=== PATIENT | female | born 1930 | race Caucasian/White ===

== ENCOUNTER 2017-01-05 15:05 | Emergency (ER) | payer OTHER ==
[~2017-01-05] VITALS: Ht 160 cm; Wt 63.5 kg
[~2017-01-05 15:05] MED LIST: AMBIEN; AMBIEN5 MG PO; ANTIVERT25 MG PO; ASPIRIN; ATORVASTATIN 80 MG T; ATORVASTATIN CA80 MG PO; Ambien PO; Antivert PO; CEFTIN250 MG PO; CLINDAMYCIN HC300 MG PO; CLONAZEPAM0.5 MG; CRANBERRY450 M1 PO; CYANOCOBALAM1000 MCG PO; Colace PO; DEPAKOTE; DEPAKOTE500 MG PO; DIVALPROEX SOD500 MG; ECOTRIN325 MG PO; Ecotrin PO; FLAGYL500 MG PO; GENTAMICIN SULF30 G1 TP; GLUCOPHAGE500 MG; GLUCOPHAGE500 MG PO; Glucophage PO; KEFLEX500 MG PO; KETOCONAZOLE60 GM TP; KLONOPIN; KLONOPIN0.5 M1; KLONOPIN0.5 M1 PO; KlonoPIN PO; LANSOPRAZOLE15 MG PO; LEVAQUIN750 MG PO; LEVOFLOXACIN750 MG PO; LISINOPRIL; LISINOPRIL 5 MG TABL; MECLIZINE HCL25 MG; METAMUCIL POWD798 GM PO; METFORMIN HCL500 MG; METRONIDAZOLE500 MG PO; MOTRIN600 MG PO; NYSTATIN-TRIAMC15 G1 TP; NYSTATIN15 GM TP; PERCOCET 5/31 TABLET PO; POLYETHYLENE GL17 GM PO; PREVACID15 MG; PRINIVIL5 MG PO; Pravachol PO; Prevacid PO; SALINE NASAL SP45 ML BOTH NARES; SEROQUEL12.5 MG; SEROQUEL12.5 MG PO; SEROquel PO; TYLENOL REGULA325 MG PO; ULTRAM50 MG PO; Ultram PO; VITAMIN D; VITAMIN D1000 INTUN PO; VITAMIN D31000 UNI2 PO; VOLTAREN 1% GE100 GM TD; VOLTAREN 1% GE100 GM TP; ZESTRIL5 MG; ZOFRAN ODT4 MG PO; ZOFRAN4 MG PO; ZOFRAN8 MG; ZOLPIDEM TARTRA10 MG; Zestril,Prinivil PO; Zofran PO
[2017-01-05 15:52] LABS: HEMATOCRIT 35.5 % (36.0-46.0); MCHC 33.2 G/DL (30.0-36.0); MCV 93.2 FL (83-99); MEAN PLAT.VOLUME 10.1 uM^3 (9.5-12.4); PLATELET COUNT 273 K/uL (156-360); RBC DIS.WIDTH-CV 14.4 % (11.8-14.6); RED BLOOD COUNT 3.81 M/uL (3.80-5.20); WHITE BLOOD COUNT 6.4 K/uL (4.1-10.2)
[2017-01-05 16:02] LABS: INTER. NORMALIZED RATIO 1.1; PROTHROMBIN TIME 10.8 (9.2-11.2); PTT 25.1 (25-32)
[2017-01-05 16:05] LABS: CHLORIDE 114 mEq/L (99-109); POTASSIUM 3.9 mEq/L (3.7-5.4); SODIUM 141 mEq/L (136-147)
[2017-01-05 16:07] LABS: GLUCOSE 94 mg/dL (70-99)
[2017-01-05 16:09] LABS: ANION GAP 10 MEQ/L (2-14)
[2017-01-05 16:11] LABS: GFR ESTIMATE (CALCULATED) > 59 mL/min/
[2017-01-05 16:12] LABS: UREA NITROGEN (BUN) 19 mg/dL (9-23)
[2017-01-05 16:15] LABS: TROP-I INTERPRETATION NEGATIVE; TROPONIN-I < 0.01 ng/mL (0.0-0.30)
[2017-01-05 18:20] LABS: ADD MIUA? YES; BILIRUBIN NEGATIVE; BLOOD SMALL; COLOR YELLOW ((YELLOW)); GLUCOSE (STRIP) NEGATIVE; KETONES 5; LEUKOCYTES SMALL; NITRITE POSITIVE; PROTEIN (STRIP) NEGATIVE; SPECIFIC GRAVITY 1.016 (1.000-1.030); UROBILINOGEN 0.2 MG/DL (0.2-1.0)
[2017-01-05 18:29] LABS: BACTERIA RARE /HPF; EPITHELIAL CELLS 2+ /HPF; HYALINE CASTS 0-5 /LPF; MUCUS TRACE /LPF; RED BLOOD CELLS 0-5 /HPF (0-5); UCUL ADDED? NO
[2017-01-05] MEDS ORDERED: CIPRO500 MG PO (18:36)
[2017-01-05 19:01] VITALS: BP 133/70
== END 2017-01-05 19:22 | disposition home or self-care (01) ==
LOC: EME → EDBD 15:05 → EME 15:05
PROVIDERS: Emergency Medicine
DX: N39.0 Urinary tract infection, site not specified (principal); E86.0 Dehydration; R53.1 Weakness; R42 Dizziness and giddiness; F31.11 Bipolar disorder, current episode manic without psychotic features, mild; I10 Essential (primary) hypertension; E78.5 Hyperlipidemia, unspecified; E11.9 Type 2 diabetes mellitus without complications; Z79.84 Long term (current) use of oral hypoglycemic drugs; Z79.82 Long term (current) use of aspirin; Z86.73 Personal history of transient ischemic attack (TIA), and cerebral infarction without residual deficits; Z88.0 Allergy status to penicillin; Z90.710 Acquired absence of both cervix and uterus; F17.200 Nicotine dependence, unspecified, uncomplicated
CPT/HCPCS: 70450; 71020; 80048; 81003; 84484; 85027; 85610; 85730; 90839; 93005; 99281; 99285; J7030

== ENCOUNTER 2017-01-09 01:50 | Emergency (ER) | payer OTHER ==
[~2017-01-09] VITALS: Ht 160 cm; Wt 60.2 kg
[~2017-01-09 01:50] MED LIST changes: +CIPRO500 MG PO
[2017-01-09 02:18] LABS: HEMATOCRIT 36.7 % (36.0-46.0); MCH 30.8 PG (29.0-34.0); MCHC 33.2 G/DL (30.0-36.0); MCV 92.7 FL (83-99); MEAN PLAT.VOLUME 9.4 uM^3 (9.5-12.4); PLATELET COUNT 313 K/uL (156-360); RBC DIS.WIDTH-CV 14.5 % (11.8-14.6); RBC DIS.WIDTH-SD 49.8 % (39-53); RED BLOOD COUNT 3.96 M/uL (3.80-5.20); WHITE BLOOD COUNT 7.3 K/uL (4.1-10.2)
[2017-01-09 02:30] LABS: CHLORIDE 112 mEq/L (99-109); POTASSIUM 3.5 mEq/L (3.7-5.4); SODIUM 141 mEq/L (136-147)
[2017-01-09 02:33] LABS: GLUCOSE 86 mg/dL (70-99)
[2017-01-09 02:34] LABS: ANION GAP 10 MEQ/L (2-14)
[2017-01-09 02:35] LABS: TOTAL BILIRUBIN 0.2 mg/dL (0.0-1.0)
[2017-01-09 02:36] LABS: ALKALINE PHOSPHATASE 74 IU/L (3-129); GFR ESTIMATE (CALCULATED) > 59 mL/min/
[2017-01-09 02:37] LABS: UREA NITROGEN (BUN) 14 mg/dL (9-23)
[2017-01-09 02:40] LABS: LIPASE 27 U/L (1.0-51.0); TROP-I INTERPRETATION NEGATIVE; TROPONIN-I < 0.01 ng/mL (0.0-0.30)
[2017-01-09 08:18] VITALS: BP 147/74
== END 2017-01-09 08:26 | disposition home or self-care (01) ==
LOC: EME → EDBD 01:50 → EME 08:26
PROVIDERS: Emergency Medicine
DX: F31.10 Bipolar disorder, current episode manic without psychotic features, unspecified (principal); R11.0 Nausea; F41.9 Anxiety disorder, unspecified
CPT/HCPCS: 71020; 80053; 81003; 83690; 84484; 85027; 90839; 93005; 99281; 99284

== ENCOUNTER 2017-01-21 18:00 | Inpatient (IN) | payer OTHER ==
[~2017-01-21] VITALS: Ht 160 cm; Wt 61.0 kg
[2017-01-21 20:13] LABS: HEMATOCRIT 44.9 % (36.0-46.0); MCH 30.8 PG (29.0-34.0); MCHC 33.4 G/DL (30.0-36.0); MCV 92.2 FL (83-99); MEAN PLAT.VOLUME 10.5 uM^3 (9.5-12.4); PLATELET COUNT 329 K/uL (156-360); RBC DIS.WIDTH-CV 14.2 % (11.8-14.6); RBC DIS.WIDTH-SD 48.2 % (39-53); WHITE BLOOD COUNT 10.6 K/uL (4.1-10.2)
[2017-01-21 20:18] LABS: RED BLOOD COUNT 4.87 M/uL (3.80-5.20)
[2017-01-21] MEDS ORDERED: KEFLEX500 MG PO (20:25)
[2017-01-21 20:44] LABS: CHLORIDE 108 mEq/L (99-109); POTASSIUM 4.3 mEq/L (3.7-5.4); SODIUM 142 mEq/L (136-147)
[2017-01-21 20:45] LABS: GLUCOSE 111 mg/dL (70-99)
[2017-01-21 20:47] LABS: ANION GAP 14 MEQ/L (2-14)
[2017-01-21 20:49] LABS: GFR ESTIMATE (CALCULATED) 56 mL/min/
[2017-01-21 20:50] LABS: UREA NITROGEN (BUN) 24 mg/dL (9-23)
[2017-01-21] MEDS ORDERED: BACTRIM,SEPT1 TABLET PO (23:00)
[2017-01-22 00:18] LABS: CREATINE KINASE 751 IU/L (1-294); TOTAL CK 751 IU/L (1-294)
[2017-01-22 00:24] LABS: CK-MB 14.3 ng/mL (0.0-4.9)
[2017-01-22 02:14] VITALS: BP 138/92
[2017-01-22 06:17] LABS: POINT-OF-CARE METER ID UU14208753
[2017-01-22 06:40] LABS: HEMATOCRIT 36.7 % (36.0-46.0); MCH 31.6 PG (29.0-34.0); MCHC 34.1 G/DL (30.0-36.0); MCV 92.7 FL (83-99); MEAN PLAT.VOLUME 11.3 uM^3 (9.5-12.4); PLATELET COUNT 280 K/uL (156-360); RBC DIS.WIDTH-CV 14.5 % (11.8-14.6); RBC DIS.WIDTH-SD 48.9 % (39-53); RED BLOOD COUNT 3.96 M/uL (3.80-5.20); WHITE BLOOD COUNT 7.6 K/uL (4.1-10.2)
[2017-01-22 07:08] LABS: ALKALINE PHOSPHATASE 70 IU/L (3-129); ANION GAP 10 MEQ/L (2-14); CHLORIDE 107 MEQ/L (99-109); GFR ESTIMATE (CALCULATED) > 59 mL/min/; GLUCOSE 126 mg/dL (70-99); POTASSIUM 4.5 MEQ/L (3.7-5.4); SAMPLE HEMOLYSIS CHECK 2; SAMPLE ICTERIC CHECK 0; SAMPLE LIPEMIA CHECK 0; SODIUM 137 MEQ/L (136-147); TOTAL BILIRUBIN 0.5 MG/DL (0.0-1.0); UREA NITROGEN (BUN) 19 mg/dL (9-23)
[2017-01-22 08:08] LABS: CREATINE KINASE 357 IU/L (1-294)
[2017-01-22 08:44] VITALS: BP 94/51
[2017-01-22 11:28] LABS: POINT-OF-CARE METER ID UU14117124
[2017-01-22 15:56] VITALS: BP 103/53
[2017-01-22 17:04] LABS: POINT-OF-CARE METER ID UU14117124
[2017-01-22 18:38] LABS: ADD MIUA? YES; BILIRUBIN NEGATIVE; BLOOD SMALL; GLUCOSE (STRIP) NEGATIVE; KETONES 5; LEUKOCYTES TRACE; PROTEIN (STRIP) NEGATIVE; SPECIFIC GRAVITY 1.025 (1.000-1.030); UROBILINOGEN 0.2 MG/DL (0.2-1.0)
[2017-01-22 18:40] LABS: COLOR DK YELLOW ((YELLOW))
[2017-01-22 18:41] LABS: NITRITE POSITIVE
[2017-01-22 18:52] LABS: CASTS NONE SEEN /LPF; EPITHELIAL CELLS 1+ /HPF; MUCUS 1+ /LPF; RED BLOOD CELLS NONE SEEN /HPF (0-5)
[2017-01-22 18:53] LABS: BACTERIA 4+ /HPF; UCUL ADDED? YES; WHITE BLOOD CELLS 0-5 /HPF (0-5)
[2017-01-22 23:31] VITALS: BP 113/56
[2017-01-23 05:59] LABS: ANION GAP 8 MEQ/L (2-14); CHLORIDE 110 MEQ/L (99-109); GFR ESTIMATE (CALCULATED) > 59 mL/min/; POTASSIUM 3.9 MEQ/L (3.7-5.4); SAMPLE HEMOLYSIS CHECK 0; SAMPLE ICTERIC CHECK 0; SAMPLE LIPEMIA CHECK 0; SODIUM 139 MEQ/L (136-147); UREA NITROGEN (BUN) 13 mg/dL (9-23)
[2017-01-23 06:06] LABS: GLUCOSE 79 mg/dL (70-99)
[2017-01-23 06:52] LABS: POINT-OF-CARE METER ID UU14188577
[2017-01-23 08:21] VITALS: BP 111/54
[2017-01-23 11:21] LABS: POINT-OF-CARE METER ID UU14188577
[2017-01-23 11:28] LABS: Estimated Average Glucose 111 mg/dL (70-123); HEMOGLOBIN A1c (GLYCOHEMOGLOB) 5.5 % HGB (Below 5.7)
[2017-01-23 15:30] VITALS: BP 116/56
[2017-01-23 16:10] LABS: POINT-OF-CARE METER ID UU14117124
[2017-01-23 21:19] LABS: POINT-OF-CARE METER ID UU14117124
[2017-01-24 01:01] VITALS: BP 122/64
[2017-01-24 06:33] LABS: POINT-OF-CARE METER ID UU14188577
[2017-01-24 07:43] VITALS: BP 140/61
[2017-01-24] MEDS ORDERED: KLONOPIN0.5 M1 PO (09:40)
[2017-01-24] MEDS ORDERED: ULTRAM50 MG PO (09:40)
[2017-01-24] MEDS ORDERED: CEFDINIR300 MG PO (09:40)
[2017-01-24] MEDS ORDERED: AMBIEN5 MG PO (09:40)
== END 2017-01-24 11:35 | DRG 92 ==
LOC: EME 18:00 → 3EAST 23:17 → EDOF 23:17 → ENRESERV 23:20 → 3EAST 01-22 02:14
PROVIDERS: Emergency Medicine; Hospitalist; Internal Medicine
DX: R26.89 Other abnormalities of gait and mobility (principal); L03.115 Cellulitis of right lower limb; M62.82 Rhabdomyolysis; L03.116 Cellulitis of left lower limb; I10 Essential (primary) hypertension; K21.9 Gastro-esophageal reflux disease without esophagitis; Z79.82 Long term (current) use of aspirin; Z79.899 Other long term (current) drug therapy; T79.6XXA Traumatic ischemia of muscle, initial encounter; F31.62 Bipolar disorder, current episode mixed, moderate; F41.9 Anxiety disorder, unspecified
CPT/HCPCS: 70450; 72131; 73610; 74176; 80048; 80053; 81003; 82550; 82553; 82948; 83036; 83605; 85027; 87040; 87077; 87086; 87186; 99281; 99285; J0696; J1644; J1815; J2405; J7030; J7040; J7050

== ENCOUNTER 2017-05-01 11:57 | Observation (INO) | payer OTHER ==
[~2017-05-01] VITALS: Ht 160 cm; Wt 65.0 kg
[~2017-05-01 11:57] MED LIST changes: +BACTRIM,SEPT1 TABLET PO; +CEFDINIR300 MG PO
[2017-05-01 12:54] LABS: HEMATOCRIT 34.7 % (36.0-46.0); MCH 30.5 PG (29.0-34.0); MCHC 32.6 G/DL (30.0-36.0); MCV 93.8 FL (83-99); MEAN PLAT.VOLUME 10.8 uM^3 (9.5-12.4); PLATELET COUNT 219 K/uL (156-360); RBC DIS.WIDTH-SD 44.7 % (39-53); WHITE BLOOD COUNT 5.2 K/uL (4.1-10.2)
[2017-05-01 13:06] LABS: CHLORIDE 108 mEq/L (99-109); POTASSIUM 3.7 mEq/L (3.7-5.4); SODIUM 140 mEq/L (136-147)
[2017-05-01 13:07] LABS: GLUCOSE 98 mg/dL (70-99)
[2017-05-01 13:09] LABS: ANION GAP 6 MEQ/L (2-14)
[2017-05-01 13:11] LABS: GFR ESTIMATE (CALCULATED) > 59 mL/min/
[2017-05-01 13:12] LABS: UREA NITROGEN (BUN) 18 mg/dL (9-23)
[2017-05-01 13:20] LABS: TROP-I INTERPRETATION NEGATIVE; TROPONIN-I < 0.01 ng/mL (0.0-0.30)
[2017-05-01] MEDS ORDERED: TRAMADOL HCL50 MG PO (14:45)
[2017-05-01] MEDS ORDERED: PRIMIDONE50 MG PO (14:45)
[2017-05-01] MEDS ORDERED: RISPERDAL0.5 MG PO (14:47)
[2017-05-01] MEDS ORDERED: ZESTRIL2.5 MG PO (14:48)
[2017-05-01] MEDS ORDERED: COUGH SYRUP PO (14:51)
[2017-05-01 16:00] VITALS: BP 146/70
[2017-05-01 17:55] LABS: ADD MIUA? YES; BILIRUBIN NEGATIVE; BLOOD NEGATIVE; COLOR AMBER ((YELLOW)); GLUCOSE (STRIP) NEGATIVE; KETONES NEGATIVE; LEUKOCYTES SMALL; NITRITE NEGATIVE; PROTEIN (STRIP) 30; SPECIFIC GRAVITY 1.025 (1.000-1.030); UROBILINOGEN 0.2 MG/DL (0.2-1.0)
[2017-05-01 18:18] LABS: BACTERIA 3+ /HPF; CALCIUM OXALATE CRYSTALS 2+ /HPF; EPITHELIAL CELLS 2+ /HPF; MUCUS NONE SEEN /LPF; RED BLOOD CELLS 0-5 /HPF (0-5)
[2017-05-01 19:31] LABS: TROP-I INTERPRETATION NEGATIVE; TROPONIN-I < 0.01 ng/mL (0.0-0.30)
[2017-05-01 20:00] VITALS: BP 127/81
[2017-05-01 21:49] LABS: POINT-OF-CARE METER ID UU13113831
[2017-05-01 23:04] VITALS: BP 118/63
[2017-05-02 01:11] LABS: TROP-I INTERPRETATION NEGATIVE; TROPONIN-I < 0.01 ng/mL (0.0-0.30)
[2017-05-02 04:01] VITALS: BP 131/60
[2017-05-02 11:16] VITALS: BP 115/55
[2017-05-02 12:40] LABS: POINT-OF-CARE METER ID UU14162513
[2017-05-02] MEDS ORDERED: CEFDINIR300 MG PO (12:59)
== END 2017-05-02 15:26 | disposition home or self-care (01) ==
LOC: EME 11:57 → EDOF 14:06 → ENRESERV 14:09 → 5WEST 15:50
PROVIDERS: Hospitalist; Physician Assistant
DX: R07.9 Chest pain, unspecified (principal); N39.0 Urinary tract infection, site not specified; M25.512 Pain in left shoulder; E11.9 Type 2 diabetes mellitus without complications; Z79.84 Long term (current) use of oral hypoglycemic drugs; I10 Essential (primary) hypertension; K21.9 Gastro-esophageal reflux disease without esophagitis; G25.0 Essential tremor; R26.2 Difficulty in walking, not elsewhere classified; F17.200 Nicotine dependence, unspecified, uncomplicated; Z98.1 Arthrodesis status; Z79.82 Long term (current) use of aspirin; Z90.49 Acquired absence of other specified parts of digestive tract; Z90.710 Acquired absence of both cervix and uterus; Z82.49 Family history of ischemic heart disease and other diseases of the circulatory system; Z66 Do not resuscitate; Z88.0 Allergy status to penicillin; Z88.5 Allergy status to narcotic agent
CPT/HCPCS: 71020; 80048; 81003; 82948; 84484; 85027; 87086; 93005; 99281; 99285; G0378; J0696; J1644; J2405; J7040; J7050

== ENCOUNTER 2017-08-13 14:07 | Emergency (ER) | payer OTHER ==
[~2017-08-13] VITALS: Ht 160 cm; Wt 63.4 kg
[~2017-08-13 14:07] MED LIST changes: +COUGH SYRUP PO; +PRIMIDONE50 MG PO; +RISPERDAL0.5 MG PO; +TRAMADOL HCL50 MG PO; +ZESTRIL2.5 MG PO
[2017-08-13 14:48] LABS: BASOPHIL (%) 0.2 % (0-1); EOSINOPHIL (%) 0.6 % (0-5); EOSINOPHIL COUNT 0.1 K/uL (0-0.3); HEMATOCRIT 36.5 % (36.0-46.0); HEMOGLOBIN 12.3 G/DL (11.9-15.5); IMMATURE GRANULOCYTE (%) 0.1 % (0.0-0.7); LYMPHOCYTE (%) 37.6 % (15-42); LYMPHOCYTE COUNT 3.1 K/uL (1.0-2.8); MCHC 33.7 G/DL (30.0-36.0); MCV 91.9 FL (83-99); MONOCYTE (%) 10.3 % (3-12); MONOCYTE COUNT 0.9 K/uL (0-0.8); NEUTROPHIL (%) 51.2 % (45-76); NEUTROPHIL COUNT 4.3 K/uL (1.8-6.4); PLATELET COUNT 306 K/uL (156-360); RBC DIS.WIDTH-CV 13.3 % (11.8-14.6); RBC DIS.WIDTH-SD 45.3 % (39-53); RED BLOOD COUNT 3.97 M/uL (3.80-5.20); WHITE BLOOD COUNT 8.3 K/uL (4.1-10.2)
[2017-08-13 14:55] LABS: ALBUMIN 3.5 g/dL (3.2-4.8)
[2017-08-13 14:56] LABS: CHLORIDE 101 mEq/L (99-109); POTASSIUM 4.6 mEq/L (3.7-5.4); SODIUM 135 mEq/L (136-147)
[2017-08-13 14:58] LABS: GLUCOSE 123 mg/dL (70-99); TOTAL PROTEIN 6.6 g/dL (6.4-8.3)
[2017-08-13 15:00] LABS: TOTAL BILIRUBIN 0.1 mg/dL (0.0-1.0)
[2017-08-13 15:01] LABS: ALKALINE PHOSPHATASE 96 IU/L (3-129)
[2017-08-13 15:02] LABS: CREATININE 0.7 mg/dL (0.6-1.3); GFR ESTIMATE (CALCULATED) > 59 mL/min/
[2017-08-13 15:03] LABS: AST (GOT) 15 IU/L (2-34); UREA NITROGEN (BUN) 25 mg/dL (9-23)
[2017-08-13 15:04] LABS: ALT (GPT) 16 IU/L (3-49)
[2017-08-13 15:05] LABS: LIPASE 21 U/L (1.0-51.0)
[2017-08-13 18:38] LABS: APPEARANCE CLEAR ((CLEAR)); BILIRUBIN NEGATIVE; BLOOD NEGATIVE; COLOR YELLOW ((YELLOW)); GLUCOSE (STRIP) NEGATIVE; KETONES NEGATIVE; LEUKOCYTES SMALL; NITRITE NEGATIVE; PROTEIN (STRIP) NEGATIVE; UROBILINOGEN 0.2 MG/DL (0.2-1.0)
[2017-08-13 18:48] LABS: BACTERIA RARE /HPF; EPITHELIAL CELLS RARE /HPF; MUCUS NONE SEEN /LPF; RED BLOOD CELLS 0-5 /HPF (0-5)
[2017-08-13] MEDS ORDERED: CIPRO500 MG PO (19:13)
[2017-08-13] MEDS ORDERED: ZOFRAN4 MG PO (19:13)
[2017-08-13 19:57] LABS: SPECIFIC GRAVITY 1.062 (1.000-1.030)
[2017-08-13 20:25] VITALS: BP 117/75
== END 2017-08-13 20:40 | disposition home or self-care (01) ==
LOC: EME 14:07
PROVIDERS: Emergency Medicine
DX: N39.0 Urinary tract infection, site not specified (principal); I10 Essential (primary) hypertension; K21.9 Gastro-esophageal reflux disease without esophagitis; E78.5 Hyperlipidemia, unspecified; E11.9 Type 2 diabetes mellitus without complications; I25.2 Old myocardial infarction; F31.9 Bipolar disorder, unspecified; F41.9 Anxiety disorder, unspecified; F32.9 Major depressive disorder, single episode, unspecified; F17.200 Nicotine dependence, unspecified, uncomplicated; Z85.820 Personal history of malignant melanoma of skin; Z87.440 Personal history of urinary (tract) infections; Z79.84 Long term (current) use of oral hypoglycemic drugs; Z88.5 Allergy status to narcotic agent; Z88.0 Allergy status to penicillin
CPT/HCPCS: 71045; 74177; 80053; 81003; 83690; 85025; 85610; 93005; 99281; 99285; J2765; J3010; J7030

== ENCOUNTER 2017-09-19 14:17 | Inpatient (IN) | payer OTHER ==
[~2017-09-19] VITALS: Ht 160 cm; Wt 62.0 kg
[~2017-09-19 14:17] MED LIST changes: +DEPAKOTE ER500 MG PO; -DEPAKOTE500 MG PO; -ECOTRIN325 MG PO
[2017-09-19 14:50] LABS: BASOPHIL (%) 0.5 % (0-1); EOSINOPHIL (%) 0.1 % (0-5); HEMATOCRIT 36.1 % (36.0-46.0); HEMOGLOBIN 12.5 G/DL (11.9-15.5); IMMATURE GRANULOCYTE (%) 0.1 % (0.0-0.7); LYMPHOCYTE (%) 47.2 % (15-42); LYMPHOCYTE COUNT 3.5 K/uL (1.0-2.8); MCH 31.6 PG (29.0-34.0); MCHC 34.6 G/DL (30.0-36.0); MCV 91.4 FL (83-99); MONOCYTE (%) 8.3 % (3-12); MONOCYTE COUNT 0.6 K/uL (0-0.8); NEUTROPHIL (%) 43.8 % (45-76); NEUTROPHIL COUNT 3.2 K/uL (1.8-6.4); PLATELET COUNT 309 K/uL (156-360); RBC DIS.WIDTH-CV 14.3 % (11.8-14.6); RBC DIS.WIDTH-SD 48.2 % (39-53); RED BLOOD COUNT 3.95 M/uL (3.80-5.20); WHITE BLOOD COUNT 7.4 K/uL (4.1-10.2)
[2017-09-19 14:55] LABS: INTER. NORMALIZED RATIO 1.1
[2017-09-19 14:57] LABS: PTT 32.3 SEC (25-37)
[2017-09-19 14:59] LABS: CHLORIDE 105 mEq/L (99-109); POTASSIUM 4.7 mEq/L (3.7-5.4); SODIUM 138 mEq/L (136-147)
[2017-09-19 15:01] LABS: GLUCOSE 85 mg/dL (70-99)
[2017-09-19 15:05] LABS: CREATININE 0.7 mg/dL (0.6-1.3); GFR ESTIMATE (CALCULATED) > 59 mL/min/
[2017-09-19 15:06] LABS: UREA NITROGEN (BUN) 19 mg/dL (9-23)
[2017-09-19 15:25] LABS: APPEARANCE CLOUDY ((CLEAR)); BILIRUBIN NEGATIVE; BLOOD SMALL; COLOR YELLOW ((YELLOW)); GLUCOSE (STRIP) NEGATIVE; KETONES 5; LEUKOCYTES LARGE; NITRITE POSITIVE; PROTEIN (STRIP) NEGATIVE; SPECIFIC GRAVITY 1.019 (1.000-1.030); UROBILINOGEN 0.2 MG/DL (0.2-1.0)
[2017-09-19 15:41] LABS: BACTERIA 3+ /HPF; EPITHELIAL CELLS 2+ /HPF; MUCUS NONE SEEN /LPF; WHITE BLOOD CELLS TNTC /HPF (0-5)
[2017-09-19 15:43] LABS: HDL CHOLESTEROL 54 MG/DL (Desirable>=50); LDL CHOLESTEROL 116 mg/dL (Desirable<100); NON-HDL CHOLESTEROL 133 mg/dL (Desirable<160); TOTAL CHOLESTEROL 187 mg/dL (Desirable<200); TRIGLYCERIDES 85 MG/DL (Normal: <150)
[2017-09-19 22:33] VITALS: BP 125/66
[2017-09-20 04:19] VITALS: BP 119/57
[2017-09-20 06:35] LABS: BASOPHIL (%) 0.3 % (0-1); EOSINOPHIL (%) 0.6 % (0-5); HEMATOCRIT 32.3 % (36.0-46.0); IMMATURE GRANULOCYTE (%) 0.2 % (0.0-0.7); LYMPHOCYTE (%) 53.6 % (15-42); LYMPHOCYTE COUNT 3.5 K/uL (1.0-2.8); MCH 31.9 PG (29.0-34.0); MCHC 34.1 G/DL (30.0-36.0); MCV 93.6 FL (83-99); MONOCYTE (%) 9.3 % (3-12); MONOCYTE COUNT 0.6 K/uL (0-0.8); NEUTROPHIL COUNT 2.4 K/uL (1.8-6.4); PLATELET COUNT 280 K/uL (156-360); RBC DIS.WIDTH-CV 14.6 % (11.8-14.6); RBC DIS.WIDTH-SD 50.5 % (39-53); RED BLOOD COUNT 3.45 M/uL (3.80-5.20); WHITE BLOOD COUNT 6.6 K/uL (4.1-10.2)
[2017-09-20 07:01] LABS: CHLORIDE 106 MEQ/L (99-109); CREATININE 0.7 MG/DL (0.6-1.3); GFR ESTIMATE (CALCULATED) > 59 mL/min/; GLUCOSE 68 mg/dL (70-99); POTASSIUM 4.4 MEQ/L (3.7-5.4); SODIUM 139 MEQ/L (136-147); UREA NITROGEN (BUN) 22 mg/dL (9-23)
[2017-09-20 08:37] VITALS: BP 135/61
[2017-09-20 12:41] VITALS: BP 130/60
[2017-09-20 16:47] VITALS: BP 127/69
[2017-09-20 19:08] VITALS: BP 148/70
[2017-09-20 23:54] VITALS: BP 128/65
[2017-09-21 03:31] VITALS: BP 130/71
[2017-09-21 07:34] VITALS: BP 118/56
[2017-09-21 08:07] LABS: HEMOGLOBIN A1c (GLYCOHEMOGLOB) 5.5 % (Below 5.7)
[2017-09-21 10:32] LABS: BASOPHIL (%) 0.6 % (0-1); EOSINOPHIL (%) 0.7 % (0-5); EOSINOPHIL COUNT 0.1 K/uL (0-0.3); HEMATOCRIT 34.9 % (36.0-46.0); HEMOGLOBIN 11.7 G/DL (11.9-15.5); LYMPHOCYTE (%) 43.7 % (15-42); LYMPHOCYTE COUNT 2.9 K/uL (1.0-2.8); MCH 31.7 PG (29.0-34.0); MCHC 33.5 G/DL (30.0-36.0); MCV 94.6 FL (83-99); MONOCYTE (%) 9.2 % (3-12); MONOCYTE COUNT 0.6 K/uL (0-0.8); NEUTROPHIL (%) 45.8 % (45-76); NEUTROPHIL COUNT 3.1 K/uL (1.8-6.4); PLATELET COUNT 282 K/uL (156-360); RBC DIS.WIDTH-CV 14.6 % (11.8-14.6); RBC DIS.WIDTH-SD 50.9 % (39-53); RED BLOOD COUNT 3.69 M/uL (3.80-5.20); WHITE BLOOD COUNT 6.7 K/uL (4.1-10.2)
[2017-09-21 11:05] LABS: ALBUMIN 3.4 G/DL (3.2-4.8); ALKALINE PHOSPHATASE 70 IU/L (3-129); ALT (GPT) 19 IU/L (3-49); AST (GOT) 14 IU/L (2-34); CHLORIDE 110 MEQ/L (99-109); CREATININE 0.7 MG/DL (0.6-1.3); GFR ESTIMATE (CALCULATED) > 59 mL/min/; GLUCOSE 145 mg/dL (70-99); LIPASE 26 U/L (1.0-51.0); MAGNESIUM 1.8 mg/dl (1.3-2.7); POTASSIUM 4.3 MEQ/L (3.7-5.4); SODIUM 142 MEQ/L (136-147); TOTAL BILIRUBIN 0.1 MG/DL (0.0-1.0); TOTAL PROTEIN 6.2 G/DL (6.4-8.3); UREA NITROGEN (BUN) 15 mg/dL (9-23)
[2017-09-21] MEDS ORDERED: ECOTRIN325 MG PO (12:45)
[2017-09-21] MEDS ORDERED: PRIMIDONE50 MG PO (12:55)
[2017-09-21] MEDS ORDERED: ZOLPIDEM TARTRAT5 MG PO (13:01)
[2017-09-21 15:24] VITALS: BP 151/69
[2017-09-21 19:28] VITALS: BP 169/79
[2017-09-21 23:25] VITALS: BP 145/71
[2017-09-22 03:59] VITALS: BP 166/93
[2017-09-22 07:27] VITALS: BP 146/80
[2017-09-22 12:03] VITALS: BP 142/78
[2017-09-22] MEDS ORDERED: CEFTIN250 MG PO (12:46)
[2017-09-22 16:04] VITALS: BP 135/66
[2017-09-22 19:35] VITALS: BP 150/76
[2017-09-22 23:20] VITALS: BP 11/71
[2017-09-23 03:24] VITALS: BP 111/68
[2017-09-23 07:14] VITALS: BP 111/64
== END 2017-09-23 11:10 | disposition home health service (06) | DRG 690 ==
LOC: EME 14:17 → 5SOUTH 20:49 → EDOF 20:49 → ENRESERV 20:51 → 5SOUTH 22:04 → ENPENDDIS 09-23 09:57 → 5SOUTH 09-23 11:10
PROVIDERS: Emergency Medicine; Internal Medicine; Physician Assistant
DX: N39.0 Urinary tract infection, site not specified (principal); R45.851 Suicidal ideations; T76.11XA Adult physical abuse, suspected, initial encounter; F05 Delirium due to known physiological condition; R54 Age-related physical debility; B96.20 Unspecified Escherichia coli [E. coli] as the cause of diseases classified elsewhere; B95.0 Streptococcus, group A, as the cause of diseases classified elsewhere; E11.9 Type 2 diabetes mellitus without complications; G30.9 Alzheimer's disease, unspecified; F02.80 Dementia in other diseases classified elsewhere, unspecified severity, without behavioral disturbance, psychotic disturbance, mood disturbance, and anxiety; E78.5 Hyperlipidemia, unspecified; F17.210 Nicotine dependence, cigarettes, uncomplicated; F31.9 Bipolar disorder, unspecified; F43.21 Adjustment disorder with depressed mood; G25.0 Essential tremor; I10 Essential (primary) hypertension; K21.9 Gastro-esophageal reflux disease without esophagitis; R32 Unspecified urinary incontinence; Z60.2 Problems related to living alone; Z85.820 Personal history of malignant melanoma of skin; Z87.440 Personal history of urinary (tract) infections; Z90.710 Acquired absence of both cervix and uterus; Z98.1 Arthrodesis status; Z88.0 Allergy status to penicillin; Z88.5 Allergy status to narcotic agent; Z79.84 Long term (current) use of oral hypoglycemic drugs; Z82.49 Family history of ischemic heart disease and other diseases of the circulatory system
CPT/HCPCS: 70450; 70544; 70549; 70551; 71045; 72100; 74018; 80048; 80053; 80061; 81003; 82948; 83036; 83690; 83735; 85025; 85610; 85730; 87040; 87077; 87086; 87186; 93005; 93306; 93880; 99281; 99285; J0696; J1644; J1815; J1885; J1956; J2405; J7030

== ENCOUNTER 2017-11-01 11:01 | Emergency (ER) | payer OTHER ==
[~2017-11-01] VITALS: Ht 160 cm; Wt 64.6 kg
[~2017-11-01 11:01] MED LIST changes: +ECOTRIN325 MG PO; +ZOLPIDEM TARTRAT5 MG PO
[2017-11-01 13:13] LABS: BASOPHIL (%) 0.3 % (0-1); EOSINOPHIL (%) 0.3 % (0-5); HEMATOCRIT 37.2 % (36.0-46.0); HEMOGLOBIN 12.8 G/DL (11.9-15.5); IMMATURE GRANULOCYTE (%) 0.2 % (0.0-0.7); LYMPHOCYTE (%) 28.3 % (15-42); LYMPHOCYTE COUNT 2.7 K/uL (1.0-2.8); MCH 32.3 PG (29.0-34.0); MCHC 34.4 G/DL (30.0-36.0); MCV 93.9 FL (83-99); MONOCYTE (%) 7.1 % (3-12); MONOCYTE COUNT 0.7 K/uL (0-0.8); NEUTROPHIL (%) 63.8 % (45-76); PLATELET COUNT 351 K/uL (156-360); RBC DIS.WIDTH-CV 13.4 % (11.8-14.6); RBC DIS.WIDTH-SD 46.4 % (39-53); RED BLOOD COUNT 3.96 M/uL (3.80-5.20); WHITE BLOOD COUNT 9.5 K/uL (4.1-10.2)
[2017-11-01 13:23] LABS: PTT 31.1 SEC (25-37)
[2017-11-01 13:41] LABS: TROP-I INTERPRETATION NEGATIVE; TROPONIN-I 0.04 ng/mL (0.0-0.30)
[2017-11-01 13:52] LABS: CHLORIDE 103 MEQ/L (99-109); CREATINE KINASE 54 IU/L (1-294); CREATININE 0.5 MG/DL (0.6-1.3); GFR ESTIMATE (CALCULATED) > 59 mL/min/; GLUCOSE 101 mg/dL (70-99); MAGNESIUM 1.8 mg/dl (1.3-2.7); POTASSIUM 4.2 MEQ/L (3.7-5.4); SODIUM 136 MEQ/L (136-147); UREA NITROGEN (BUN) 20 mg/dL (9-23)
[2017-11-01 14:30] LABS: APPEARANCE CLOUDY ((CLEAR)); BILIRUBIN NEGATIVE; BLOOD NEGATIVE; COLOR YELLOW ((YELLOW)); GLUCOSE (STRIP) NEGATIVE; KETONES NEGATIVE; LEUKOCYTES LARGE; NITRITE POSITIVE; PROTEIN (STRIP) NEGATIVE; SPECIFIC GRAVITY 1.013 (1.000-1.030); UROBILINOGEN 0.2 MG/DL (0.2-1.0)
[2017-11-01 14:49] LABS: EPITHELIAL CELLS 1+ /HPF; MUCUS NONE SEEN /LPF; RED BLOOD CELLS NONE SEEN /HPF (0-5); WHITE BLOOD CELLS 20-30 /HPF (0-5)
[2017-11-01 14:50] LABS: BACTERIA 3+ /HPF; UCUL ADDED? YES
[2017-11-01] MEDS ORDERED: LEVAQUIN750 MG PO (15:47)
[2017-11-01 17:07] VITALS: BP 119/65
== END 2017-11-01 17:10 | disposition home or self-care (01) ==
LOC: EME 11:01
PROVIDERS: Emergency Medicine
DX: S46.919A Strain of unspecified muscle, fascia and tendon at shoulder and upper arm level, unspecified arm, initial encounter (principal); N39.0 Urinary tract infection, site not specified; W18.30XA Fall on same level, unspecified, initial encounter; R51 Headache; E11.9 Type 2 diabetes mellitus without complications; E78.5 Hyperlipidemia, unspecified; F32.9 Major depressive disorder, single episode, unspecified; Z79.84 Long term (current) use of oral hypoglycemic drugs; I10 Essential (primary) hypertension; K21.9 Gastro-esophageal reflux disease without esophagitis; F41.9 Anxiety disorder, unspecified; Z85.820 Personal history of malignant melanoma of skin; Z87.440 Personal history of urinary (tract) infections; Z88.5 Allergy status to narcotic agent; Z88.0 Allergy status to penicillin; Z87.891 Personal history of nicotine dependence
CPT/HCPCS: 70450; 71045; 73060; 73522; 80048; 81003; 82550; 82948; 83735; 84484; 85025; 85610; 85730; 87040; 87077; 87086; 87186; 93005; 99281; 99285; J7030